=== PATIENT | female | born 1955 | race Caucasian/White ===

== ENCOUNTER → 2018-04-04 | Outpatient (CLI) | payer OTHER ==
--- NOTE | 2018-04-04 18:25 | BD ---
EXAMINATION TYPE: Axial Bone Density DATE OF EXAM: 04/04/2018 CLINICAL HISTORY: Height: 61.75 Weight: 170 FRAX RISK QUESTIONS: Alcohol (3 or more units per day): no Family History (Parent hip fracture): no Glucocorticoids (More than 3mos): no (Ex: prednisone, prednisolone, methylprednisolone, dexamethasone, and hydrocortisone). History of Fracture in Adulthood: thumb Secondary Osteoporosis: 1. Type 1 Diabetes: no 2. Hyperthyroidism: no 3. Menopause before 45: uterus removed age 39, ovaries age 53 4. Malnutrition: no 5. Chronic liver disease: no Rheumatoid Arthritis: no Current Tobacco Use: no RISK FACTORS HISTORY OF: Family History of Osteoporosis: possible maternal aunt Active: yes Diet low in dairy products/other sources of calcium: no Postmenopausal woman: yes Take estrogen and/or progesterone medications: not now How long: hormonal contraceptives about 3 years, later estrogen less than 5 years Lost more than 2 inches in height since high school: no Frequent falls: no Poor Health: no Hyperparathyroidism: no Adrenal Insufficiency: no MEDICATIONS: Prednisone or other steroids: no Thyroid Medications: no Osteoporosis Medications: no Additional Medications: atenolol, omeprazole, amLODIPine, atorvaststin, losartan-hydrochlorothiazide EXAM MEASUREMENTS: Bone mineral densitometry was performed using the [employer] System. Bone mineral density as measured about the Lumbar spine is: ----- L1-L4(G/cm2): 1.332 T Score Values are as follows: ----- L2: 1.6 ----- L3: 1.3 ----- L4: 0.8 ----- L1-L4: 1.3 Bone mineral density has: Decreased -3.7% since study of: 06/16/2013 Bone mineral density about the R hip (g/cm2): 0.979 Bone mineral density about the L hip (g/cm2): 0.972 T Score values are as follows: -----R Neck: -0.4 -----L Neck: -0.5 -----R Total: 0.6 -----L Total: 0.2 Bone mineral density has: Decreased -3.4% since study of: 06/16/2013 IMPRESSION: Normal (Values between +1 and -1 indicate normal bone mass). Consider repeating this study in 5 year s or sooner if there is some new clinical indication. NOTE: T-SCORE=SD OF THE YOUNG ADULT MEAN.
--- NOTE | 2018-04-08 10:57 | MM ---
Reason for exam: screening (asymptomatic). Last mammogram was performed 2 years and 4 months ago. History: Patient is postmenopausal. Family history of breast cancer in maternal aunt at age 65. Benign ultrasound-guided core biopsy of the left breast, October 15, 2003. Benign ultrasound-guided core biopsy of the left breast, April 10, 2003. Benign ultrasound-guided core biopsy of the left breast, April 10, 2003. 3 core biopsies of the left breast. Took hormonal contraceptives for 3 years beginning at age 19. Took estrogen for 5 years. Took progesterone for 5 years. Physical Findings: A clinical breast exam by your physician is recommended on an annual basis and results should be correlated with mammographic findings. MG 3D Screening Mammo W/Cad Bilateral CC and MLO view(s) were taken. Prior study comparison: November 24, 2015, bilateral MG 3d screening mammo w/cad. August 05, 2014, bilateral MG screening mammo w CAD. The breast tissue is heterogeneously dense. This may lower the sensitivity of mammography. Benign appearing bilateral calcifications. Left biopsy markers noted. No significant changes when compared with prior studies. ASSESSMENT: Benign, BI-RAD 2 RECOMMENDATION: Routine screening mammogram of both breasts in 1 year.
== END | disposition home or self-care (01) ==
LOC: RADMAMWWP 12:39
PROVIDERS: ATTEND Obstetrics & Gynecology
DX: Z12.31 Encounter for screening mammogram for malignant neoplasm of breast (principal); Z13.820 Encounter for screening for osteoporosis
CPT/HCPCS: 77063; 77067; 77080

== ENCOUNTER → 2021-01-21 | Outpatient (CLI) | payer MEDICARE ==
--- NOTE | 2021-01-26 12:13 | MM ---
Reason for exam: screening (asymptomatic). Last mammogram was performed 2 years and 10 months ago. History: Patient is postmenopausal. Family history of breast cancer in maternal aunt at age 65. Benign ultrasound-guided core biopsy of the left breast, October 15, 2003. Benign ultrasound-guided core biopsy of the left breast, April 10, 2003. Benign ultrasound-guided core biopsy of the left breast, April 10, 2003. 3 core biopsies of the left breast. Took hormonal contraceptives for 3 years beginning at age 19. Took estrogen for 5 years. Took progesterone for 5 years. Physical Findings: A clinical breast exam by your physician is recommended on an annual basis and results should be correlated with mammographic findings. MG 3D Screening Mammo W/Cad Bilateral CC and MLO view(s) were taken. XCCL view(s) were taken of the right breast. Prior study comparison: April 04, 2018, bilateral MG 3d screening mammo w/cad. November 24, 2015, bilateral MG 3d screening mammo w/cad. The breast tissue is heterogeneously dense. This may lower the sensitivity of mammography. Previous mammotome biopsy in the left breast x 2. Superior asymmetric density right breast is more defined and incompletely disperses on 3D images. ASSESSMENT: Incomplete: need additional imaging evaluation, BI-RAD 0 RECOMMENDATION: Special view mammogram of the right breast. (3D) If lesion persists on supplemental views, image directed ultrasound is recommended. [facility] will attempt to contact patient to return for supplemental views and ultrasound if indicated.
== END | disposition home or self-care (01) ==
LOC: RADMAMWWP 15:20
PROVIDERS: ATTEND Obstetrics & Gynecology
DX: Z12.31 Encounter for screening mammogram for malignant neoplasm of breast (principal); R92.8 Other abnormal and inconclusive findings on diagnostic imaging of breast
CPT/HCPCS: 77063; 77067

== ENCOUNTER → 2021-02-08 | Outpatient (CLI) | payer MEDICARE ==
--- NOTE | 2021-02-09 10:31 | MM ---
Reason for exam: additional evaluation requested from abnormal screening. Last mammogram was performed 1 month ago. History: Patient is postmenopausal. Family history of breast cancer in maternal aunt at age 65. Benign ultrasound-guided core biopsy of the left breast, October 15, 2003. Benign ultrasound-guided core biopsy of the left breast, April 10, 2003. Benign ultrasound-guided core biopsy of the left breast, April 10, 2003. 3 core biopsies of the left breast. Took hormonal contraceptives for 3 years beginning at age 19. Took estrogen for 5 years. Took progesterone for 5 years. Physical Findings: Nurse did not find any significant physical abnormalities on exam. MG 3D Work Up W/Cad RT LM and spot compression MLO view(s) were taken of the right breast. Prior study comparison: January 21, 2021, bilateral MG 3d screening mammo w/cad. April 04, 2018, bilateral MG 3d screening mammo w/cad. The breast tissue is heterogeneously dense. This may lower the sensitivity of mammography. Superior asymmetric density appears to improve on spot 3D. Precautionary 6 month follow up recommended. These results were verbally communicated with the patient and result sheet given to the patient on 02/08/21. ASSESSMENT: Probably benign, BI-RAD 3 RECOMMENDATION: Follow-up diagnostic mammogram of the right breast in 6 months.
== END | disposition home or self-care (01) ==
LOC: RADMAMWWP 14:58
PROVIDERS: ATTEND Obstetrics & Gynecology
DX: N64.89 Other specified disorders of breast (principal); Z78.0 Asymptomatic menopausal state; Z80.3 Family history of malignant neoplasm of breast
CPT/HCPCS: 77065; G0279; 77061

== ENCOUNTER → 2021-08-26 | Outpatient (CLI) | payer MEDICARE ==
--- NOTE | 2021-08-29 09:20 | MM ---
Reason for exam: follow-up at short interval from prior study. Last mammogram was performed 7 months ago. History: Patient is postmenopausal. Family history of breast cancer in maternal aunt at age 65. Benign ultrasound-guided core biopsy of the left breast, October 15, 2003. Benign ultrasound-guided core biopsy of the left breast, April 10, 2003. Benign ultrasound-guided core biopsy of the left breast, April 10, 2003. 3 core biopsies of the left breast. Took hormonal contraceptives for 3 years beginning at age 19. Took estrogen for 5 years. Took progesterone for 5 years. Physical Findings: Nurse did not find any significant physical abnormalities on exam. MG 3D Diag Mammo Wo Cad RT CC and MLO view(s) were taken of the right breast. Prior study comparison: January 21, 2021, bilateral MG 3d screening mammo w/cad. April 04, 2018, bilateral MG 3d screening mammo w/cad. November 24, 2015, bilateral MG 3d screening mammo w/cad. The breast tissue is heterogeneously dense. This may lower the sensitivity of mammography. Finding: There are intermediate concern, suspicious grouped/clustered, fine calcifications in the 12 o'clock middle position of the right breast 4cm from the nipple. New finding since January 21, 2021, April 04, 2018, and November 24, 2015. These results were verbally communicated with the patient and result sheet given to the patient on 08/26/21. ASSESSMENT: Suspicious, BI-RAD 4 RECOMMENDATION: Surgical consultation and stereotactic core biopsy of the right breast. Called Dr. Pedraza's office with mammographic findings and has scheduled an appointment for the patient for 10/06/21 at 10:[address] Tsang. Biopsy scheduled for 09/12/21 at 10:30. PRELIMINARY REPORT CALLED AND FAXED TO DR. TSANG ON 08/29/21.
== END | disposition home or self-care (01) ==
LOC: RADMAMWWP 10:56
PROVIDERS: ATTEND Obstetrics & Gynecology
DX: R92.1 Mammographic calcification found on diagnostic imaging of breast (principal); Z80.3 Family history of malignant neoplasm of breast
CPT/HCPCS: 77065; G0279; 77061

== ENCOUNTER → 2021-09-12 | Day surgery (SDC) | payer MEDICARE ==
[2021-09-12 09:34] VITALS: RESP 16; TEMP 98
[2021-09-12 11:44] VITALS: BP 124/69; PULSE 50
--- NOTE | 2021-09-12 19:07 | MM ---
EXAMINATION TYPE: MG stereo VAD BX RT DATE OF EXAM: 09/12/2021 COMPARISON: 08/26/2021 and 01/21/2021 CLINICAL HISTORY: 66-year-old female referred for stereotactic core needle biopsy right breast microcalcifications, R92.8. TECHNIQUE: Stereotactic guided core biopsy of 12:00 right breast. FINDINGS: The procedure of stereotactic guided core biopsy was explained to the patient. Benefits, alternatives, and risks were discussed. An informed consent was then obtained. [facility] Shortness pathway was a CC from above approach. I performed the localization localization followed by the remainder of the procedure. A vacuum assisted biopsy gun was used to obtain 6 core samples. The patient tolerated the procedure well without any immediate complication. The patient was kept in the radiology department for short stay after the procedure and then discharged home in stable condition. Targeted calcifications are identified in specimen mammogram. Post biopsy mammogram shows the secure roxanne clip to appear in relatively satisfactory position. There may be slight 8 mm of superior clip migration. IMPRESSION: SUCCESSFUL, UNCOMPLICATED STEREOTACTIC GUIDED CORE BIOPSY OF 12:00 RIGHT BREAST MICROCALCIFICATIONS. THERE MAY BE SLIGHT 8 MM OF SUPERIOR CLIP MIGRATION. FULL PATHOLOGY RESULTS TO FOLLOW. Pathology Results: High Risk RIGHT BREAST, STEREOTACTIC CORE BIOPSY: Proliferative fibrocystic changes including sclerosing adenosis with calcifications, radial scar/complex sclerosing lesion, moderate usual type ductal hyperplasia, columnar cell change, cysts and fibrosis. Recommendation Surgical consult of the right breast. Radial scar. MTDD
== END ==
LOC: RADMAMWWP 09:15
PROVIDERS: ATTEND Surgery
DX: N60.11 Diffuse cystic mastopathy of right breast (principal); N60.21 Fibroadenosis of right breast; N62 Hypertrophy of breast
CPT/HCPCS: 88305; 19081; J2001

== ENCOUNTER 2021-10-17 10:16 | Day surgery (SDC) | payer MEDICARE ==
[~2021-10-17 10:16] MED LIST: ACETAMINOPHEN TAB 500 MG TAB PO PRN; HEPARIN SODIUM,PORCINE/PF 5,000 UNIT/0.5 ML SYRINGE SQ PRN; Pre Op ABX Message 1 EACH MISC MISCELLANE ONE
[2021-10-17] MEDS ORDERED: ALPRAZolam 0.25 MG TAB ONE (10:46)
[2021-10-17] MEDS ORDERED: LACTATED RINGERS 1,000 ML IV ONE ×2 (11:00→13:46)
[2021-10-17 11:27] LABS: Potassium 3.4 mmol/L (3.5-5.1)
[2021-10-17 11:28] LABS: ALT 23 U/L (4-34); AST 25 U/L (14-36); African American GFR (CKD) >90 (>60 ml/min/1.73 sqM); Albumin 4.8 g/dL (3.5-5.0); Alkaline Phosphatase 106 U/L (38-126); Anion Gap 13 mmol/L; Blood Urea Nitrogen 14 mg/dL (7-17); Calcium 9.9 mg/dL (8.4-10.2); Carbon Dioxide 27 mmol/L (22-30); Chloride 102 mmol/L (98-107); Glucose 142 mg/dL (74-99); Non-African American GFR(CKD) >90 (>60 ml/min/1.73 sqM); Sodium 142 mmol/L (137-145); Total Bilirubin 0.8 mg/dL (0.2-1.3)
[2021-10-17] MEDS ORDERED: LIDOCAINE 1% INJ 10MG/ML (20 ML MDV) SQ ONE (11:42)
[2021-10-17] MEDS ORDERED: ONDANSETRON 4 MG/2 ML VIAL ONE (12:05)
[2021-10-17] MEDS ORDERED: DEXAMETHASONE SOD PHOSPHATE 4 MG/ML 1 ML VIAL IVP ONE (12:26)
[2021-10-17] MEDS ORDERED: BUPIVACAINE (PF) 0.25% 30 ML VIAL SQ ONE ×2 (13:00→13:44)
[2021-10-17] MEDS ORDERED: LIDOCAINE 1% INJ 10MG/ML (20 ML MDV) ONE (13:05)
[2021-10-17] MEDS ORDERED: PROPOFOL 10 MG/ML 20 ML VIAL IV ONE (13:05)
[2021-10-17] MEDS ORDERED: fentaNYL (PF) 50 MCG/ML 2 ML AMP ONE (13:05)
[2021-10-17] MEDS ORDERED: MIDAZOLAM 2 MG/2 ML VIAL ONE (13:05)
[2021-10-17] MEDS ORDERED: SODIUM CHLORIDE 0.9% 100 ML with ceFAZolin 2,000 MG IV ONE ×2 (13:17)
[2021-10-17] MEDS ORDERED: NALOXONE 0.4 MG/ML 1 ML VIAL IV PRN (13:48)
[2021-10-17] MEDS ORDERED: traMADol 50 MG TAB PO PRN (13:48)
--- NOTE | 2021-10-17 13:51 | P.OP ---
Date of Procedure: 10/17/21 Procedure(s) Performed: PREOPERATIVE DIAGNOSIS: Abnormal right mammogram POSTOPERATIVE DIAGNOSIS: Same PROCEDURE: Right Breast wire localization biopsy SURGEON: Sharan EBL: Minimal ANESTHESIA: Sedation plus local COMPLICATIONS: None OPERATIVE PROCEDURE: Patient was placed on the operating room table in the s upine position. The patient's breast was prepped and draped in usual sterile fashion. A curvilinear incision was made adjacent to the wire entrance site. I followed the wire down into the breast tissue. The breast tissue around the tip of the wire was fully excised using electrocautery. The specimen was sent for specimen radiogram. The clip was present within the specimen. The subcutaneous tissues were inspected. No bleeding was seen. The subcutaneous tissues were closed using 3-0 Vicryl sutures. The skin was closed using a running 4-0 Monocryl stitch. Skin glue was then applied. DISPOSITION: Stable to recovery room
[2021-10-17 14:05] VITALS: TEMP 97
[2021-10-17 14:13] VITALS: RESP 16
--- NOTE | 2021-10-17 14:24 | MM ---
EXAMINATION TYPE: MG pre op needle loc RT, MG surgical specimen RT DATE OF EXAM: 10/17/2021 COMPARISON: Prior mammogram September 12, 2021 and older mammograms. CLINICAL HISTORY: Abnormal stereotactic guided core biopsy. High risk lesion, radial scar. TECHNIQUE: Needle localization with wire placement and surgical excision of area of concern in the right breast. FINDINGS: The procedure of needle localization with wire placement and than surgical excision was explained to the patient. Benefits, alternatives, and risks were discussed. An informed consent was then obtained. The shortest pathway for procedure was chosen. Shortest pathway was cranial approach. The overlying skin was prepped and draped in usual sterile fashion. Lidocaine was used as anesthetic into the skin and subcutaneous tissue up to the level of area of concern. . Lidocaine with epinephrine is used as anesthetic into the deeper tissue. A 5 cm needle was used. It was placed via a cranial approach under mammographic guidance. Subsequent 90 degrees mammogram show the needle to be in satisfactory position relative to the targeted area. At this point, wire was placed and the needle was withdrawn. The wire was fixed to patient's skin. Images were marked for surgeon. The patient tolerated the procedure well without any immediate complication. The patient was kept in the radiology department for short stay after the procedure and then taken to surgery for surgical excision. Targeted biopsy clip and wire are identified in specimen mammogram. The patient was kept in hospital for short stay after the procedure and then discharged home in stable condition. IMPRESSION: Successful, uncomplicated needle localization with wire placement and surgical excision of targeted biopsy clip in the right breast, full pathology results to follow. Pathology Results: High Risk RIGHT BREAST, LUMPECTOMY: Fibrocystic change with apocrine metaplasia, sclerosing adenosis, microcalcification, usual ductal hyperplasia and focal residual features of radial scar adjacent to biopsy site change. Negative for in situ or invasive carcinoma and margins negative for malignancy. Recommendation Follow up mammogram of the right breast in 6 months. CHUCKIE
[2021-10-17 15:20] VITALS: BP 137/92; PULSE 87
== END 2021-10-17 15:15 | disposition home or self-care (01) ==
LOC: OR 10:16
PROVIDERS: ATTEND Surgery
DX: N60.11 Diffuse cystic mastopathy of right breast (principal); N60.81 Other benign mammary dysplasias of right breast; N60.21 Fibroadenosis of right breast; E78.5 Hyperlipidemia, unspecified; K21.9 Gastro-esophageal reflux disease without esophagitis; I10 Essential (primary) hypertension; Z79.899 Other long term (current) drug therapy
CPT/HCPCS: 19125; 80053; 88307; 76098; 19281; C1819; J2250; J1100; J2405; J0690; J2001; J3010; J2704; J1644

== ENCOUNTER → 2022-03-29 | Outpatient (CLI) | payer MEDICARE ==
--- NOTE | 2022-03-29 13:26 | MM ---
Reason for Exam: Follow-up at short interval from prior study. Last mammogram was performed 1 year(s) and 3 month(s) ago. Patient History: Menarche at age 11. First Full-Term at age 22. Left ovary removed at age 53. Right ovary removed at age 53. Hysterectomy at age 39. Postmenopausal. Patient used Estrogen for 5 years. Patient used Progesterone for 5 years. Hormonal Contraceptives for 3 years from age 19 until age 22. 10/17/2021, Lumpectomy on the Right side. Core Biopsy on the Left side. Core Biopsy on the Left side. Core Biopsy on the Left side. 10/17/2021, High risk Core Biopsy on the right side. 09/12/2021, High risk Core Biopsy on the right side. 04/10/2003, Benign Ultrasound-Guided Core Biopsy on the left side. 04/10/2003, Benign Ultrasound-Guided Core Biopsy on the left side. 10/15/2003, Benign Ultrasound-Guided Core Biopsy on the left side. Maternal aunt had breast cancer, age 65. Risk Values: Imelda 5 year model risk: 2.3%. NCI Lifetime model risk: 7.7%. Tissue Density: The breast tissue is heterogeneously dense. This may lower the sensitivity of mammography. Findings: Analyzed By CAD. Postsurgical changes with architectural distortion compatible with the patient's recent surgery. There are surgical clips noted in the left and there are benign-appearing calcifications bilaterally. Overall Assessment: Benign, BI-RAD 2 Management: Diagnostic Mammogram of both breasts in 6 months. A clinical breast exam by your physician is recommended on an annual basis and results should be correlated with mammographic findings. This exam should not preclude additional follow-up of suspicious palpable abnormalities. Results were given to the patient verbally at the time of exam. Electronically signed and approved by: Terry Costello M.D. Radiologis
== END | disposition home or self-care (01) ==
LOC: RADMAMWWP 12:56
PROVIDERS: ATTEND Surgery
DX: R92.8 Other abnormal and inconclusive findings on diagnostic imaging of breast (principal); R92.1 Mammographic calcification found on diagnostic imaging of breast; Z78.0 Asymptomatic menopausal state
CPT/HCPCS: 77066; G0279; 77062

== ENCOUNTER → 2022-10-02 | Outpatient (CLI) | payer MEDICARE ==
--- NOTE | 2022-10-02 13:51 | MM ---
Reason for Exam: Follow-up at short interval from prior study. Last screening mammogram was performed 6 month(s) ago. Patient History: Menarche at age 11. First Full-Term at age 22. Left ovary removed at age 53. Right ovary removed at age 53. Hysterectomy at age 39. Postmenopausal. Patient used Estrogen for 5 years. Patient used Progesterone for 5 years. Hormonal Contraceptives for 3 years from age 19 until age 22. 10/17/2021, Lumpectomy on the Right side. Core Biopsy on the Left side. Core Biopsy on the Left side. Core Biopsy on the Left side. 10/17/2021, High risk Core Biopsy on the right side. 09/12/2021, High risk Core Biopsy on the right side. 04/10/2003, Benign Ultrasound-Guided Core Biopsy on the left side. 04/10/2003, Benign Ultrasound-Guided Core Biopsy on the left side. 10/15/2003, Benign Ultrasound-Guided Core Biopsy on the left side. Maternal aunt had breast cancer, age 65. Risk Values: Imelda 5 year model risk: 2.3%. NCI Lifetime model risk: 7.4%. Tissue Density: The breast tissue is heterogeneously dense. This may lower the sensitivity of mammography. Findings: Analyzed By CAD. Stable postoperative distortion right breast. No evidence for new mass or new area of distortion. Biopsy changes left breast. Benign calcifications present. Overall Assessment: Benign, BI-RAD 2 Management: Screening Mammogram of both breasts in 1 year. A clinical breast exam by your physician is recommended on an annual basis and results should be correlated with mammographic findings. This exam should not preclude additional follow-up of suspicious palpable abnormalities. Results were given to the patient verbally at the time of exam. Electronically signed and approved by: Dustin Lees M.D. Radiologis
== END | disposition home or self-care (01) ==
LOC: RADMAMWWP 13:29
PROVIDERS: ATTEND Surgery
DX: R92.8 Other abnormal and inconclusive findings on diagnostic imaging of breast (principal); Z78.0 Asymptomatic menopausal state; Z80.3 Family history of malignant neoplasm of breast; Z90.721 Acquired absence of ovaries, unilateral
CPT/HCPCS: 77066; G0279; 77062

== ENCOUNTER → 2023-11-19 | Outpatient (CLI) | payer MEDICARE ==
--- NOTE | 2023-11-19 17:57 | BD ---
EXAMINATION TYPE: Axial Bone Density DATE OF EXAM: 11/19/2023 CLINICAL HISTORY: 68 years old Female. ICD-10 CODE: N95.1 MENOPAUSAL STATE Height: 5 ft 1 1/2 in Weight: 164 FRAX RISK QUESTIONS: Alcohol (3 or more units per day): no Family History (Parent hip fracture): no Glucocorticoids (More than 3mos): no (Ex: prednisone, prednisolone, methylprednisolone, dexamethasone, and hydrocortisone). History of Fracture in Adulthood: no Secondary Osteoporosis: 1. Type 1 Diabetes: no 2. Hyperthyroidism: no 3. Menopause before 45: no 4. Malnutrition: no 5. Chronic liver disease: no Rheumatoid Arthritis: no Current Tobacco Use: no RISK FACTORS HISTORY OF: Surgery to Spine/Hip(right/left)/Wrist (right/left): no MEDICATIONS: Thyroid Medications: none Osteoporosis Medications: none EXAM MEASUREMENTS: Bone mineral densitometry was performed using the [employer]. Bone mineral density as measured about the Lumbar spine is: ----- L1-L4(G/cm2): 1.327 T Score Values are as follows: ----- L1: 1.4 ----- L2: 1.3 ----- L3: 1.5 ----- L4: 0.7 ----- L1-L4: 1.2 Z Score Values are as follows: ----- L1: 2.7 ----- L2: 2.6 ----- L3: 2.8 ----- L4: 2.1 ----- L1-L4: 2.6 Bone mineral density has: decreased -0.4 % since study of: 2017 Bone mineral density about the R hip (g/cm2): 0.972 Bone mineral density about the L hip (g/cm2): 0.947 T Score values are as follows: -----R Neck: -0.5 -----L Neck: -0.7 -----R Total: 0.8 -----L Total: 0.0 Z Score values are as follows: -----R Neck: 1.0 -----L Neck: 0.8 -----R Total: 2.0 -----L Total: 1.1 Bone mineral density has: decreased -0.5 % since study of: 2018 FRAX%s: The graph provided illustrates a 7.8 % chance for a major osteoporotic fx and a 0.6 % chance for the hips probability for fx in 10 years time. IMPRESSION: Normal (Values between +1 and -1 indicate normal bone mass). Consider repeating this study in 5 year s or sooner if there is some new clinical indication. NOTE: T-SCORE=SD OF THE YOUNG ADULT MEAN.
--- NOTE | 2023-11-21 10:02 | MM ---
Reason for Exam: Screening (asymptomatic). Last mammogram was performed 1 year(s) and 1 month(s) ago. Patient History: Menarche at age 11. First Full-Term at age 22. Left ovary removed at age 53. Right ovary removed at age 53. Hysterectomy at age 39. Postmenopausal. Patient used Estrogen for 5 years. Patient used Progesterone for 5 years. Hormonal Contraceptives for 3 years from age 19 until age 22. 10/17/2021, Lumpectomy on the Right side. Core Biopsy on the Left side. Core Biopsy on the Left side. Core Biopsy on the Left side. 10/17/2021, High risk Core Biopsy on the right side. 09/12/2021, High risk Core Biopsy on the right side. 04/10/2003, Benign Ultrasound-Guided Core Biopsy on the left side. 04/10/2003, Benign Ultrasound-Guided Core Biopsy on the left side. 10/15/2003, Benign Ultrasound-Guided Core Biopsy on the left side. Maternal aunt had breast cancer, age 65. Risk Values: Imelda 5 year model risk: 2.3%. NCI Lifetime model risk: 7.1%. Prior Study Comparison: 08/26/2021 Right Diagnostic Mammogram, [facility]. 03/29/2022 Bilateral MG 3D diag mammo w/cad [facility], [facility]. 10/02/2022 Bilateral MG 3D diag mammo w/cad [facility], [facility]. Tissue Density: The breast tissue is heterogeneously dense. This may lower the sensitivity of mammography. Findings: Analyzed By CAD. Left breast biopsy clip. There is no suspicious group of microcalcifications or new suspicious mass. Benign-appearing calcifications bilaterally. Overall Assessment: Negative, BI-RAD 1 Management: Screening Mammogram of both breasts in [address] [facility] will attempt to contact patient to return for supplemental views and ultrasound if indicated. Patient should continue monthly self-breast exams. A clinical breast exam by your physician is recommended on an annual basis. This exam should not preclude additional follow-up of suspicious palpable abnormalities. Note on Imelda scores and lifetime risk: 1. A Imelda score greater than 3% is considered moderate risk. If this is the case, consider specialist referral to assess eligibility for a risk reducing agent. 2. If overall lifetime risk for the development of breast cancer is 20% or higher, the patient may qualify for future screening with alternating mammogram and breast MRI. Electronically signed and approved by: Sunny Arriaga DO
== END | disposition home or self-care (01) ==
LOC: RADBDWWP 11:21
PROVIDERS: ATTEND Obstetrics & Gynecology
DX: Z12.31 Encounter for screening mammogram for malignant neoplasm of breast (principal); N95.1 Menopausal and female climacteric states; Z80.3 Family history of malignant neoplasm of breast
CPT/HCPCS: 77063; 77067; 77080

== ENCOUNTER → 2024-12-25 | Outpatient (CLI) | payer MEDICARE ==
--- NOTE | 2024-12-25 14:43 | MM ---
Reason for Exam: Screening (asymptomatic). Last mammogram was performed 1 year(s) and 1 month(s) ago. Patient History: Menarche at age 11. First Full-Term at age 22. Left ovary removed at age 53. Right ovary removed at age 53. Hysterectomy at age 39. Postmenopausal. Patient used Estrogen for 5 years. Patient used Progesterone for 5 years. Hormonal Contraceptives for 3 years from age 19 until age 22. 10/17/2021, Lumpectomy on the Right side. Core Biopsy on the Left side. Core Biopsy on the Left side. Core Biopsy on the Left side. 10/17/2021, High risk Core Biopsy on the right side. 09/12/2021, High risk Core Biopsy on the right side. 04/10/2003, Benign Ultrasound-Guided Core Biopsy on the left side. 04/10/2003, Benign Ultrasound-Guided Core Biopsy on the left side. 10/15/2003, Benign Ultrasound-Guided Core Biopsy on the left side. Maternal aunt had breast cancer, age 65. Risk Values: Imelda 5 year model risk: 2.3%. NCI Lifetime model risk: 6.7%. Prior Study Comparison: 03/29/2022 Bilateral MG 3D diag mammo w/cad [facility], [facility]. 10/02/2022 Bilateral MG 3D diag mammo w/cad [facility], [facility]. 11/19/2023 Bilateral MG 3D screening mammo w/cad, [facility]. Tissue Density: The breasts are heterogeneously dense, which may obscure small masses. Findings: Analyzed By CAD. Left breast biopsy clip. Posttreatment changes right breast with architectural distortion similar to prior's. Right breast: There is no suspicious group of microcalcifications or new suspicious mass. Left breast: There is no suspicious group of microcalcifications or new suspicious mass. Overall Assessment: Benign, BI-RAD 2 Management: Screening Mammogram of both breasts in [address] [facility] will attempt to contact patient to return for supplemental views and ultrasound if indicated. Patient should continue monthly self-breast exams. A clinical breast exam by your physician is recommended on an annual basis. This exam should not preclude additional follow-up of suspicious palpable abnormalities. Note on Imelda scores and lifetime risk: 1. A Imelda score greater than 3% is considered moderate risk. If this is the case, consider specialist referral to assess eligibility for a risk reducing agent. 2. If overall lifetime risk for the development of breast cancer is 20% or higher, the patient may qualify for future screening with alternating mammogram and breast MRI. [facility], , 12/25/2024 2:40 PM. Electronically signed and approved by: Sunny Arriaga DO
== END | disposition home or self-care (01) ==
LOC: RADMAMWWP 14:23
PROVIDERS: ATTEND Family Medicine
DX: Z12.31 Encounter for screening mammogram for malignant neoplasm of breast (principal); Z13.1 Encounter for screening for diabetes mellitus; R92.333 Mammographic heterogeneous density, bilateral breasts; Z78.0 Asymptomatic menopausal state; Z80.3 Family history of malignant neoplasm of breast
CPT/HCPCS: 77063; 77067